=== PATIENT | male | born 1955 | race Caucasian/White ===

== ENCOUNTER 2018-11-02 06:29 | Emergency (ER) | payer BC, OTHER ==
--- OUTSIDE RECORDS SUMMARY | 2018-11-02 06:32 | XMS REPORT ---
:1955 [facility] Address [address] [place] [address] Care Team Providers Name Role Phone Unavailable Unavailable Unavailable Problems This patient has no known problems. Allergies, Adverse Reactions, Alerts This patient has no known allergies or adverse reactions. Medications This patient has no known medications. Results Test Description Test Time Test Comments Text Results Atomic Results Result Comments CT, HEART CORONARY CHRISTINA, WO 2018-10-15 09:49:00 Addendum BeginsREPORT STATUS :A CONTRAST Addendum: I agree with the previously described non vascular findings. Signed: Charles August Verified Date/Time: 10/15/2018 09:49:49 Reading Location: [place] [address] Angio Body Reading RoomAddendum EndsAddendum BeginsREPORT STATUS:A ADDENDUM: Reconstruction was made in the lower chest, with full athya-nx-ppaa. No nodule is identified and no pleural effusion is seen in the lower half of the lung syed. The noncontrast images of the upper abdomen is unremarkable. Degenerative changes is identified in the bony structures. Signed: Hector Shelton Verified Date/Time: 10/15/2018 07:55:39 Reading Location: [place] [address] Cardiology MRIAddendum EndsFINAL REPORT CT scan for Coronary Calcium scoring, 14 October 2018 INDICATION: This is a 63 -year old male with a diagnosis of I 47.1 presents for coronary calcium scoring. TECHNIQUE: Spiral acquisition without contrast administration using a Market6 multidetector CT scan. Calcium score is analysed using the Vital Therapiesa SOFTWARE. This exam was performed according to our departmental dose-optimisation programme, which includes automated exposure control, adjustment of the mA and/or kV according to patient size and/or use of iterative reconstruction technique. Dose modulation, iterative reconstruction, and/or weight based adjustment of the mA/kV was utilized to reduce the radiation dose to as low as reasonably achievable. Patient has excellent heart rate on arrival. FINDINGS: VASCULAR: The central pulmonary artery is at the upper limits of normal in size. The thoracic aorta is normal in course, calibre, contour. Minimal calcification is seen in the aortic root. No ectasia or aneurysmal dilation is identified. The arch vessel branching pattern is normal. The assessment of the pulmonary arteries and the thoracic aorta are limited as no intravenous contrast was administered. The cardiac chambers size are not enlarged, however, assessment is limited as no contrast was administered. The pericardium is normal appearance. There is no evidence of pericardial effusion. Calcium score and high-resolution, ECG synchronized computed tomography of the heart with attention to the coronary arteries was performed. Coronary calcification was analyzed using the Taboola system software. These are the results of the calcium score evaluation (nlkopmwft=126 HU): LM:=44 LAD:=238 LCX:=80 RCA:=428 Agatston:=790 Reference ranges for calcium scores are provided as follows (Farnsworth Clin Proc 1999; 74: 243-252): 0-10: minimal calcium 11-100: mild calcium 101-400 moderate calcium > 400 significant calcium The calcium score places patient between 90 to 95th percentile for his age group, using the HART database. The coronary arteries have normal origins. The left main coronary artery arises from the left sinus of Valsalva and give rise to the left anterior descending of the left circumflex arteries in the normal fashion. The right coronary artery arises from the right sinus of Valsalva. NON-VASCULAR: The visualised thyroid gland appears unremarkable with only tiny focal calcification seen in the right thyroid lobe, image nine, measure 7 mm in diameter. The chest wall and mediastinum appears unremarkable. No significant adenopathy is identified in the mediastinum. Calcified lymph nodes is seen in the left hilum indicating prior granulomatous disease. In the lung windows, no endobronchial lesion is seen, and no pleural effusion is identified, in the visualised lung syed. The lower chest is not reconstructed in the full agerk-ey-wnwi. Scattered calcified nodules are seen indicating prior granulomatous disease. No suspicious pulmonary nodule is identified, with visualised. Limited images of the upper abdomen reveals no gross abnormality. No acute bony pathology is identified, where visualised. Some degenerative changes is noted. CONCLUSIONS: 1. Quantitative coronary artery calcium Agatston score of 790. The calcium score places patient between 90 to 95th percentile for his age group, using the HART database. 2. Normal coronary artery origins. Calcification is identified in all three coronary territories including the left main coronary artery. 3. No acute pulmonary pathology. Evidence of prior granulomatous disease, where visualised. 4. Normal thoracic aortic calibre. Minimal calcification is seen in the aortic root. No ectasia or aneurysmal dilation is identified. 5. Other findings as described above. 6. An addendum will be dictated by the [employer] Apprentice Radiologist regarding the nonvascular findings. Signed: Hector Shelton MDReport Verified Date/Time: 10/14/2018 17:20:03 Reading Location: [place] [address] Cardiology MRI
--- OUTSIDE RECORDS SUMMARY | 2018-11-02 06:32 | XMS REPORT | Clinical Summary ---
:1955 Author Organization [facility] Address [address] [place] [address] Care Team Providers Name Role Phone Pcp, No Primary Care Provider Unavailable Allergies Not on File Medications Not on file Active Problems Not on file Encounters Date Type Specialty Care Team Description 10/14/2018 Hospital Encounter Radiology Kenyon Anders MD supraventricular tachycardia (HCC) 10/14/2018 Outside Orders Central Scheduling Kenyon Anders MD supraventricular tachycardia (HCC) (Primary Dx) after 11/01/2017 Social History Tobacco Use Types Packs/Day Years Used Date Never Assessed Sex Assigned at Date Recorded Not on file Job Start Date Occupation Industry Not on file Not on file Not on file Travel History Travel Start Travel End No recent travel history available. 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 Signed: Charles August MD Report Verified Date/Time:10/15/2018 09:49:49 Reading Location: [facility] [address] Angio Body Reading Room Addendum Ends Addendum Begins REPORT STATUS:A ADDENDUM: Reconstruction was made in the lower chest, with full nthyb-fz-wxxk. No nodule is identified and no pleural effusion is seen in the lower half of the lung syed. The noncontrast images of the upper abdomen is unremarkable. Degenerative changes is identified in the bony structures. Signed: Hector Shelton MD Report Verified Date/Time:10/15/2018 07:55:39 Reading Location: [place] [address] Cardiology MRI Addendum Ends FINAL REPORT CT scan for Coronary Calcium scoring, 14 October 2018 INDICATION: This is a 63 -year old male with a diagnosis of I 47.1 presents for coronary calcium scoring. TECHNIQUE: Spiral acquisition without contrast administration using a GE multidetectorCT scan. Calcium score is analysed using the Provasculona SOFTWARE. This exam was performed according to [...] identified. The arch vessel branching pattern is normal.The assessment of the pulmonary arteries and the [...] performed. Coronary calcification was analyzed using the Vitrea system software. These are the results of the calcium score evaluation (ejjvmzsrz=326 HU): LM:=44 LAD:=238 LCX:=80 RCA:=428 Agatston:=790 Reference ranges for calcium scores are provided as follows (Farnsworth Clin Proc 1999; 74: 243-252): 0-10: minimal calcium 11-100: mild calcium 101-400 moderate calcium > 400significant calcium The calcium score places patient between 90 to 95th percentile for his age group, using the HART database. The coronary arteries have normal origins.The left main coronary artery arises from the [...] chest is not reconstructed in the full dqzuv-oc-uvkq. Scattered calcified nodules are seen indicating prior granulomatous disease. No suspicious pulmonary nodule is identified, with visualised. Limited images of the upper abdomen reveals no gross abnormality. No acute bony pathology is identified, where visualised. Some degenerative changes is noted. CONCLUSIONS: 1.Quantitative coronary artery calcium Agatston score of790. The calcium score places patient between 90 to 95th percentile for his age group, using the HART database. 2.Normal coronary artery origins. Calcification is identified in all three coronary territories including the left main coronary artery. 3.No acute pulmonary pathology. Evidence of prior granulomatous disease, where visualised. 4.Normal thoracic aortic calibre. Minimal calcification is seen in the aortic root. No ectasia or aneurysmal dilation is identified. 5.Other findings as described above. 6.An addendum will be dictated by the Gluing Machine Offbearer Radiologist regarding the nonvascular findings. 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 Signed: Charles August MD Report Verified Date/Time: 10/15/2018 09:49:49 Reading Location: [facility] [address] Angio Body Reading Room Addendum Ends Addendum Begins REPORT STATUS:A ADDENDUM: Reconstruction was made in the lower chest, with full hbfes-um-yemp. No nodule is identified and no pleural effusion is seen in the lower half of the lung syed. The noncontrast images of the upper abdomen is unremarkable. Degenerative changes is identified in the bony structures. Signed: Hector Shelton MD Report Verified Date/Time: 10/15/2018 07:55:39 Reading Location: [place] [address] Cardiology MRI Addendum Ends FINAL REPORT CT scan for Coronary Calcium scoring, 14 October 2018 INDICATION: This is a 63 -year old male with a diagnosis of I 47.1 presents for coronary calcium scoring. TECHNIQUE: Spiral acquisition without contrast administration using a Lucky Sort multidetector CT scan. Calcium score is analysed using the Provasculona SOFTWARE. This exam was performed according to [...] performed. Coronary calcification was analyzed using the Provasculona system software. These are the results of the calcium score evaluation (gtqebswca=602 HU): LM:=44 LAD:=238 LCX:=80 RCA:=428 Agatston:=790 Reference [...] chest is not reconstructed in the full rwodg-br-qurk. Scattered calcified nodules are seen indicating prior [...] An addendum will be dictated by the Gluing Machine Offbearer Radiologist regarding the nonvascular findings. Signed: Hector Shelton MD Report Verified Date/Time: 10/14/2018 17:20:03 Reading Location: [facility] [address] Cardiology MRI Performing Organization Address City/State/Zipcode Phone Number GE RIS after 11/01/2017 Insurance Payer Benefit Plan / Subscriber ID Type Phone Address Group BLUE CROSS/BLUE BCBS PPO POS EPO xxxxxxxxxxxxxxx PPO [phone] [address] [facility] [place] [address] BLUE CROSS/BLUE BCBS OS xxxxxxxxxxxxxxx PPO [phone] [address] [employer] [place] [address] [address] [address]) [place] [id number]
[2018-11-02 07:09] LABS: Absolute Lymphocytes (CBC) 2.7 K/uL (0.7-4.9); Absolute Monocytes 0.6 K/uL (0.1-1.3); Absolute Neutrophil 3.4 K/uL (1.8-8.0); Basophils % 0.8 % (0-1.3); Eosinophils % 3.1 % (0-4.4); Hematocrit 46.9 % (39.6-49.0); Lymphocytes % 38.5 % (15.3-44.8); MPV 9.3 fL (7.6-11.3); Monocytes % 8.2 % (3.3-12.3); RBC Red Blood Cell Count 5.11 M/uL (4.33-5.43)
[2018-11-02] MEDS ORDERED: NA CHLORIDE 0.9% 1,000 ML ONE (07:16)
[2018-11-02] MEDS ORDERED: ASPIRIN 81 MG CHEWABLE TABLET ONE (07:16)
[2018-11-02] MEDS ORDERED: METOPROLOL TAR 25 MG TAB ONE (07:16)
[2018-11-02 07:28] LABS: Protime INR 0.98
[2018-11-02 07:42] LABS: Albumin 4.1 g/dL (3.4-5.0); Bilirubin Direct 0.1 mg/dL (0-0.2); Bilirubin Total 0.5 mg/dL (0.2-1.0); Magnesium 2.1 mg/dL (1.8-2.4); Potassium 4.5 mmol/L (3.5-5.1); Protein, Total 6.9 g/dL (6.4-8.2); Thyroid Stimulating Hormone 2.1 uIU/mL (0.360-3.740); Troponin (Emerg Dept Use Only) 0.2 ng/mL (0.0-0.045)
--- NOTE | 2018-11-02 08:12 | ER ---
Nurse's Notes [facility] Name: Alberto Corea Age: 63 yrs Sex: Male : 1955 Arrival Date: 11/02/2018 Time: 06:31 Bed 14 Private MD: Kianna Ghotra K Diagnosis: Unspecified atrial fibrillation Presentation: 11/02 06:46 Presenting complaint: Patient states: he started feeling like his heart was racing last bb night and again this morning his pulse rate is usually in the 40s recently he had a Holter monitor for 2 weeks but has not got the results yet. Pt denies chest pain or other symptoms. Transition of care: patient was not received from another setting of care. Onset of symptoms was November 01, 2018. Risk Assessment: Do you want to hurt yourself or someone else? Patient reports no desire to harm self or others. Initial Sepsis Screen: Does the patient meet any 2 criteria? No. Patient's initial sepsis screen is negative. Does the patient have a suspected source of infection? No. Patient's initial sepsis screen is negative. Care prior to arrival: None. 06:46 Method Of Arrival: Ambulatory bb 06:46 Acuity: MARIELY 2 bb Triage Assessment: 06:55 General: Appears in no apparent distress. Behavior is calm, cooperative, appropriate ea for age. Pain: Denies pain. EENT: No signs and/or symptoms were reported regarding the EENT system. Neuro: Level of Consciousness is awake, alert, obeys commands, Oriented to person, place, time, situation. Cardiovascular: Patient's skin is warm and dry. Parent/caregiver reports patient has had palpitations. Respiratory: Airway is patent Respiratory effort is even, unlabored, Respiratory pattern is regular, symmetrical. Derm: Skin is pink, warm \T\ dry. Historical: - Allergies: 06:54 No Known Allergies; bb - Home Meds: 06:54 lisinopril 20 mg Oral tab 1 tab twice a day [Active]; fenofibrate 54 mg oral tab 1 tab bb once daily [Active]; rosuvastatin 10 mg oral tab 1 tab [Active]; Cialis 5 mg oral tab 1 tab as needed [Active]; Singulair 10 mg Oral tab 1 tab as needed [Active]; Vit D3 2000 IU daily [Active]; Fish Oil oral oral [Active]; aspirin 81 mg Oral chew 1 tab once daily [Active]; vitamin [Active]; Probiotic oral oral daily [Active]; vit C 500 mg daily [Active]; - PMHx: 06:54 High Cholesterol; Hypertension; Hyperlipidemia; bb - PSHx: 06:54 Appendectomy; pito carpal tunnel; right rotator cuff; ulnar nerve release left elbow; bb ruptured left bicep; - Immunization history:: Adult Immunizations up to date, Flu vaccine is up to date. - Social history:: Smoking status: Patient/guardian denies using tobacco, Patient uses alcohol, occasionally. Patient/guardian denies using street drugs. - Ebola Screening: : No symptoms or risks identified at this time. Screenin:01 Abuse screen: Denies threats or abuse. Nutritional screening: No deficits noted. ea Tuberculosis screening: No symptoms or risk factors identified. Fall Risk IV access (20 points). Assessment: 07:00 General: Appears in no apparent distress. uncomfortable, Behavior is calm, cooperative, jl7 appropriate for age. Pain: Denies pain. Neuro: Level of Consciousness is awake, alert, obeys commands, Oriented to person, place, time, situation. Cardiovascular: Reports palpitations, Heart tones present Patient's skin is warm and dry. Rhythm is atrial fibrillation with rapid ventricular response. Respiratory: Airway is patent Respiratory effort is even, unlabored, Respiratory pattern is regular, symmetrical. GI: No signs and/or symptoms were reported involving the gastrointestinal system. : No signs and/or symptoms were reported regarding the genitourinary system. EENT: No signs and/or symptoms were reported regarding the EENT system. Derm: Skin is pink, warm \T\ dry. Musculoskeletal: No signs and/or symptoms reported regarding the musculoskeletal system. Vital Signs: 06:54 BP 117 / 89; Pulse 110; Resp 16 S; Temp 98.2(O); Pulse Ox 97% on R/A; Weight 97.52 kg bb (R); Height 5 ft. 9 in. (175.26 cm) (R); Pain 0/10; 07:39 BP 117 / 94; Pulse 116; Resp 16 S; Pulse Ox 98% on R/A; jl7 09:00 BP 116 / 90; Pulse 109; Resp 16 S; Pulse Ox 98% on R/A; jl7 06:54 Body Mass Index 31.75 (97.52 kg, 175.26 cm) bb ED Course: 06:31 Patient arrived in ED. am2 06:32 Kianna Ghotra MD is Private Physician. am2 06:48 Triage completed. bb 06:50 Pineda Estrella PA is PHCP. cp 06:50 Joshua Bain MD is Attending Physician. cp 06:50 Patient has correct armband on for positive identification. Placed in gown. Bed in low ea position. Call light in reach. Side rails up X 1. 06:50 Inserted saline lock: 20 gauge in right antecubital area, using aseptic technique. ea Blood collected. 06:54 Arm band placed on Patient placed in an exam room, on a stretcher, on school lunch monitor, bb on pulse oximetry. EKG completed in triage. Results shown to MD. 07:17 Abiola Cruz, GIANCARLO is Primary Nurse. jl7 07:24 XRAY Chest (1 view) In Process Unspecified. EDMS 07:38 Luis Antonio Joya MD is Attending Physician. cp 07:39 No provider procedures requiring assistance completed. jl7 08:10 Thelma Valencia MD is Hospitalizing Provider. cp 09:04 Melquiades Albert MD is Referral Physician. cp 09:32 IV discontinued, intact, bleeding controlled, No redness/swelling at site. Pressure jl7 dressing applied. Administered Medications: 07:18 Drug: Aspirin Chewable Tablet 324 mg Route: PO; jl7 08:00 Follow up: Response: No adverse reaction jl7 07:18 Drug: Metoprolol 25 mg Route: PO; jl7 08:00 Follow up: Response: No adverse reaction jl7 07:18 Drug: NS 0.9% 500 ml Route: IV; Rate: bolus; Site: right antecubital; jl7 07:50 Follow up: Response: No adverse reaction; IV Status: Completed infusion; IV Intake: jl7 500ml 07:18 Drug: NS 0.9% 1000 ml Route: IV; Rate: 125 ml/hr; Site: right antecubital; jl7 09:31 Follow up: IV Status: IV converted to saline lock jl7 08:17 Drug: Lovenox 1 mg/kg Route: Sub-Q; Site: right lower abdomen; jl7 09:00 Follow up: Response: No adverse reaction jl7 Intake: 07:50 IV: 500ml; Total: 500ml. jl7 Outcome: 08:11 Decision to Hospitalize by Provider. cp 09:04 Discharge ordered by . cp 09:32 Discharged to home ambulatory, with family. jl7 09:32 Condition: stable 09:32 Discharge instructions given to patient, family, Instructed on discharge instructions, follow up and referral plans. medication usage, Demonstrated understanding of instructions, follow-up care, medications, Prescriptions given X 2. 09:33 Patient left the ED. jl7 Signatures: Dispatcher [employer] EDMS Jocelyn Arthur RN RN bb Pineda Estrella, ROXANNA PA Abiola Soares RN RN jl7 Elsie Tolliver Elena RN RN elias Corrections: (The following items were deleted from the chart) 09:32 09:00 IV discontinued, intact, bleeding controlled, No redness/swelling at site. jl7 Pressure dressing applied, jl7
--- NOTE | 2018-11-02 08:12 | EDPHYS ---
Physician Documentation [facility] Name: Alebrto Corea Age: 63 yrs Sex: Male : 1955 Arrival Date: 11/02/2018 Time: 06:31 Bed 14 Private MD: Kianna Ghotra K ED Physician Luis Antonio Joya HPI: 11/02 06:59 This 63 yrs old Male presents to ER via Ambulatory with complaints of racing cp heart. 07:00 The patient presents with a history of heart racing. cp 07:00 Context: The symptoms occur at rest. Onset: The symptoms/episode began/occurred last cp night. Duration: The patient or guardian reports a single episode, that is still ongoing. Historical: - Allergies: 06:54 No Known Allergies; bb - Home Meds: 06:54 lisinopril 20 mg Oral tab 1 tab twice a day [Active]; fenofibrate 54 mg oral tab 1 tab bb once daily [Active]; rosuvastatin 10 mg oral tab 1 tab [Active]; Cialis 5 mg oral tab 1 tab as needed [Active]; Singulair 10 mg Oral tab 1 tab as needed [Active]; Vit D3 2000 IU daily [Active]; Fish Oil oral oral [Active]; aspirin 81 mg Oral chew 1 tab once daily [Active]; vitamin [Active]; Probiotic oral oral daily [Active]; vit C 500 mg daily [Active]; - PMHx: 06:54 High Cholesterol; Hypertension; Hyperlipidemia; bb - PSHx: 06:54 Appendectomy; pito carpal tunnel; right rotator cuff; ulnar nerve release left elbow; bb ruptured left bicep; - Immunization history:: Adult Immunizations up to date, Flu vaccine is up to date. - Social history:: Smoking status: Patient/guardian denies using tobacco, Patient uses alcohol, occasionally. Patient/guardian denies using street drugs. - Ebola Screening: : No symptoms or risks identified at this time. ROS: 07:05 Constitutional: Negative for body aches, chills, fever, poor PO intake. cp 07:05 Eyes: Negative for injury, pain, redness, and discharge. cp 07:05 ENT: Negative for drainage from ear(s), ear pain, sore throat, difficulty swallowing, difficulty handling secretions. 07:05 Cardiovascular: Positive for palpitations, Negative for chest pain, edema, orthopnea. 07:05 Respiratory: Negative for cough, shortness of breath, wheezing. 07:05 Abdomen/GI: Negative for abdominal pain, nausea, vomiting, and diarrhea, black/tarry stool, rectal bleeding. 07:05 Back: Negative for pain at rest, pain with movement. 07:05 Skin: Negative for cellulitis, rash. 07:05 Neuro: Negative for altered mental status, headache, syncope, weakness. 07:05 All other systems are negative. Exam: 06:59 ECG was reviewed by the Attending Physician. cp 07:10 Constitutional: The patient appears in no acute distress, alert, awake, comfortable, cp non-diaphoretic, non-toxic, well developed, well nourished. 07:10 Head/Face: Normocephalic, atraumatic. Eyes: Pupils equal round and reactive to light, cp extra-ocular motions intact. Lids and lashes normal. Conjunctiva and sclera are non-icteric and not injected. Cornea within normal limits. Periorbital areas with no swelling, redness, or edema. ENT: Nares patent. No nasal discharge, no septal abnormalities noted. Tympanic membranes are normal and external auditory canals are clear. Oropharynx with no redness, swelling, or masses, exudates, or evidence of obstruction, uvula midline. Mucous membranes moist. Chest/axilla: Normal chest wall appearance and motion. Nontender with no deformity. No lesions are appreciated. 07:10 Cardiovascular: Rate: tachycardic, Rhythm: irregular, Edema: is not appreciated, JVD: is not appreciated. 07:10 Respiratory: the patient does not display signs of respiratory distress, Respirations: normal, no use of accessory muscles, no retractions, no splinting, no tachypnea, labored breathing, is not present, Breath sounds: are clear throughout, no decreased breath sounds, no stridor, no wheezing. 07:10 Abdomen/GI: Inspection: abdomen appears normal, Palpation: abdomen is soft and non-tender, in all quadrants. 07:10 Skin: cellulitis, is not appreciated, no rash present. 07:10 Neuro: Orientation: to person, place \T\ time. Mentation: is normal, Cerebellar function: is grossly normal, Motor: moves all fours, strength is normal, Sensation: is normal, Gait: is steady, at a normal pace, without difficulty. Vital Signs: 06:54 BP 117 / 89; Pulse 110; Resp 16 S; Temp 98.2(O); Pulse Ox 97% on R/A; Weight 97.52 kg bb (R); Height 5 ft. 9 in. (175.26 cm) (R); Pain 0/10; 07:39 BP 117 / 94; Pulse 116; Resp 16 S; Pulse Ox 98% on R/A; jl7 09:00 BP 116 / 90; Pulse 109; Resp 16 S; Pulse Ox 98% on R/A; jl7 06:54 Body Mass Index 31.75 (97.52 kg, 175.26 cm) bb MDM: 06:50 Patient medically screened. 08:05 Physician consultation: Thelma Valencia MD was called at 08:05, was contacted at 08:05, regarding admission, to the telemetry unit. patient's condition, and will see patient in ED, shortly. 09:00 ED course: Patient seen and evaluated in ED by DR Valencia. Consult placed with DR vasquez Albert who feels patient may be discharged to home and f/u in clinic Sunday. Will start on Xeralto 20 mg daily and Metoprolol 12.5 mg bid. 09:01 Data reviewed: vital signs, nurses notes, lab test result(s), EKG, radiologic studies, cp plain films, and as a result, I will discharge patient. 09:01 Test interpretation: by ED physician or midlevel provider: ECG, plain radiologic cp studies. 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 11/02 06:51 Order name: Basic Metabolic Panel; Complete Time: 08:00 cp 11/02 08:00 Interpretation: Normal except: CL 109; BUN 27; GFR 62. cp 11/02 06:51 Order name: CBC with Diff; Complete Time: 08:00 cp 11/02 06:51 Order name: LFT's; Complete Time: 08:00 cp 11/02 06:51 Order name: Magnesium; Complete Time: 08:00 cp 11/02 06:51 Order name: NT PRO-BNP; Complete Time: 08:00 cp 11/02 08:00 Interpretation: Abnormal: NT PRO-BNP 267. cp 11/02 06:51 Order name: PT-INR; Complete Time: 08:00 cp 11/02 06:51 Order name: Troponin (emerg Dept Use Only); Complete Time: 08:00 cp 11/02 08:00 Interpretation: Abnormal: TROPED 0.20. cp 11/02 06:51 Order name: XRAY Chest (1 view) cp 11/02 06:51 Order name: TSH; Complete Time: 08:00 cp 11/02 06:51 Order name: T3 Free; Complete Time: 08:00 cp 11/02 06:51 Order name: EKG; Complete Time: 06:54 cp 11/02 06:51 Order name: Cardiac monitoring; Complete Time: 06:53 cp 11/02 06:51 Order name: EKG - Nurse/Tech; Complete Time: 06:54 cp 11/02 06:51 Order name: IV Saline Lock; Complete Time: 06:53 cp 11/02 06:51 Order name: Labs collected and sent; Complete Time: 07:03 cp 11/02 06:51 Order name: O2 Per Protocol; Complete Time: 06:54 cp 11/02 06:51 Order name: O2 Sat Monitoring; Complete Time: 06:54 cp EC:59 Rate is 116 beats/min. Rhythm is irregular. QRS interval is normal. QT interval is cp normal. Interpreted by me. Reviewed by me. Administered Medications: 07:18 Drug: Aspirin Chewable Tablet 324 mg Route: PO; 7 08:00 Follow up: Response: No adverse reaction 07:18 Drug: Metoprolol 25 mg Route: PO; jl7 08:00 Follow up: Response: No adverse reaction 7 07:18 Drug: NS 0.9% 500 ml Route: IV; Rate: bolus; Site: right antecubital; jl7 07:50 Follow up: Response: No adverse reaction; IV Status: Completed infusion; IV Intake: jl7 500ml 07:18 Drug: NS 0.9% 1000 ml Route: IV; Rate: 125 ml/hr; Site: right antecubital; 7 09:31 Follow up: IV Status: IV converted to saline lock jl7 08:17 Drug: Lovenox 1 mg/kg Route: Sub-Q; Site: right lower abdomen; jl7 09:00 Follow up: Response: No adverse reaction jl7 Disposition: 12:18 Co-signature as Attending Physician, Luis Antonio Joya MD. Disposition: 11/02/18 09:04 Discharged to Home. Impression: Unspecified atrial fibrillation. - Condition is Stable. - Discharge Instructions: Atrial Fibrillation, Aspirin and Your Heart. - Prescriptions for Xarelto 20 mg Oral tablet - take 1 tablet by ORAL route once daily; 45 tablet. Metoprolol Tartrate 25 mg Oral Tablet - take 0.5 tablet by ORAL route 2 times per day with a meal; 45 tablet. - Medication Reconciliation Form, Thank You Letter, Antibiotic Education, Prescription Opioid Use form. - Follow up: Melquiades Albert MD; When: 11/04/2018; Reason: Recheck today's complaints. - Problem is new. - Symptoms have improved. Signatures: Dispatcher [employer] EDMS Jocelyn Arthur RN RN Pineda Hyde PA PA cp Abiola Cruz RN RN jl7 Melissa Pineda RN Luis Antonio Elena ea, MD MD Corrections: (The following items were deleted from the chart) 09:03 08:11 Hospitalization Ordered by Thelma Valencia MD for Observation. Preliminary cp diagnosis is Unspecified atrial fibrillation. Bed requested for Telemetry/MedSurg (observation). Status is Observation. Condition is Stable. Problem is new. Symptoms have improved. UTI on Admission? No. cp 09:33 09:04 11/02/2018 09:04 Discharged to Home. Impression: Unspecified atrial fibrillation. jl7 Condition is Stable. Forms are Medication Reconciliation Form, Thank You Letter, Antibiotic Education, Prescription Opioid Use. Follow up: Melquiades Albert; When: 11/04/2018; Reason: Recheck today's complaints. Problem is new. Symptoms have improved. cp
[2018-11-02] MEDS ORDERED: ENOXAPARIN 100 MG/ML SYR SQ ONE (08:24)
[2018-11-02 09:37] VITALS: TEMP 98.2
[2018-11-02 09:38] VITALS: O2SAT 98
[2018-11-02 09:40] VITALS: BP 116/90
--- NOTE | 2018-11-02 11:37 | RAD REPORT ---
EXAM DESCRIPTION: RAD - Chest Single View - 11/02/2018 7:21 am CLINICAL HISTORY: PALPITATIONS Chest pain. COMPARISON: No comparisons FINDINGS: Portable technique limits examination quality. The lungs are grossly clear. The heart is normal in size. No displaced fractures. IMPRESSION: No acute intrathoracic process suspected.
--- NOTE | 2018-11-02 22:34 | CON ---
Chief Complaint: Palpitations. History Of Present Illness: The patient is 63-year-old man with past medical history of hypertension , hyperlipidemia, presented to the emergency room with palpitation. The patient mentioned that early in the morning he saw that he had palpitation and when he measured his blood pressure, he found that his pulse rate was in the 80s. According to the patient that his normal pulse rate is always in the 40s. The patient denied any chest pain or problems with breathing or exertional dyspnea. The patie nt also denied nausea, vomiting, or sweating. Denied any change in urinary or bowel habits. The valarie castaneda was seen by Dr. Guzmán, Cardiology who recommended to see Dr. Walker in the medical center and mirta sequeira had echo and stress test and Holter monitor done at that time, and according to the patient, a ll the tests were normal, and the only test that is pending is the Holter monitor report. The patien t mentioned that he was told that he could have SVT versus AFib. The patient was never started on bl ood thinner because AFib was never confirmed. In the emergency room, when he presented today, his pu lse rate was 100 to 120, and at the time of my examination, patient was given metoprolol. At the josephine e of my examination, his pulse rate was ranging from 80 to 90 in AFib. Past Medical History: Hypertension, hyperlipidemia. Allergies: NO KNOWN DRUG ALLERGIES. Social History: He denied smoking, drinking, or illicit drug use, and he mentioned that he exercise regularly. Family History: Noncontributory. Review of Systems: A 10-point review of system is done and is otherwise unremarkable. Physical Examination: Vital Signs: Temperature was 97.1, and blood pressure was 110/70, and pulse rate was 90. General: The patient is awake, alert, oriented x3, not in acute distress, sitting comfortable in the bed. HEENT: Atraumatic, normocephalic. PERRLA. Neck: Supple. Respiratory: Clear to auscultation bilaterally. Normal air movement. No wheezing or crackles. Cardiovascular: Regular rate and rhythm. Normal S1, S2. Normal pulses. No edema, no cyanosis. Gastrointestinal: Normal bowel sounds. Abdomen is soft and nontender. Bowel sound positive and non distended. Musculoskeletal: No clubbing, cyanosis, or edema. Assessment And Plan: 1.Atrial fibrillation with rapid ventricular response. 2.At the time of my examination, patient's pulse rate was ranging from 80 to 90. 3.[address] Dr. Albert, mailing machine operator, who recommended to discharge the patient home with edmundo shah in the clinic on Sunday morning. The patient was given prescription of metoprolol 12.5 mg. 4.Continue other home meds. 5.The patient was advised if he experienced any shortness of breath or chest pain to come to emergen cy room. 6.Plan discussed with the patient and the at the bedside and the ER physician. GABBY Voice ID: [id number] Report ID: [id number]
--- NOTE | 2018-11-04 07:41 | EKG ---
Test Date: 2018-11-02 Test Time: 06:43:43 Esol Instructor: RENETTA MEASUREMENT RESULTS: Intervals: Rate: 116 NE: QRSD: 94 QT: 340 QTc: 472 [place]: P: NE: QRS: -11 T: -7 INTERPRETIVE STATEMENTS: Atrial fibrillation with rapid ventricular response Incomplete right bundle branch block Nonspecific ST abnormality, probably digitalis effect Abnormal ECG No previous ECG available for comparison Electronically Signed On 11-04-18 07:38:03 PICKLING OPERATOR by Melquiades Albert
== END 2018-11-02 09:33 | disposition home or self-care (01) ==
LOC: ER 06:29 → UNDOADMOB 08:33 → ERHOLD 08:33 → ER 09:33
DX: I48.91 Unspecified atrial fibrillation (principal); I10 Essential (primary) hypertension; E78.5 Hyperlipidemia, unspecified; E78.00 Pure hypercholesterolemia, unspecified; Z79.82 Long term (current) use of aspirin
CPT/HCPCS: 36415; 71045; 80048; 80076; 83735; 83880; 84443; 84481; 84484; 85025; 85610; 93005; 96360; 96361; 96372; 99284; J1650; J7030

== ENCOUNTER 2022-09-13 13:51 | Emergency (ER) | payer OTHER, BC ==
--- OUTSIDE RECORDS SUMMARY | 2022-09-13 14:00 | XMS REPORT | Continuity of Care Document ---
:[address] [facility] t Address [address] [place] [address] Care Team Providers Name Role Phone JAMAICA WALSH Shakir Primary Care Physician Unavailable Dawson FERREIRA, Arnaud Attending Clinician Susanna MIRAMONTES-COURT BAILIFFToya Attending Clinician Kate FERREIRA, Ivone Brannon Attending Clinician VIKRAM ODEN Attending Clinician Unavailable IRMA MARTIN Attending Clinician Unavailable JOSE CREWS Attending Clinician Unavailable NICHOLAS MCMANUS Attending Clinician Unavailable VIKRAM ODEN Admitting Clinician Unavailable IRMA MARTIN Admitting Clinician Unavailable Payers Payer Name Policy Type Policy Number Effective Date Expiration Date S [facility] [place]ICARE PART A [id number] 2021 AND B 00:00:00 BCBS OS [id number] 2017 POS/PPO/EPO 00:00:00 Problems Condition Condition Condition Status Onset Resolution Last Treating Co mments Source Name Details Category Date Date Treatment Clinician Date Trigger Trigger Disease Active 2021-09 [facility] middle middle 0-31 Health finger of finger of 00:00: left hand left hand 00 Osteoarthr Osteoarthr Disease Active 2021-09 U T osis, osis, 0 Health localized, localized, 00:00: primary, primary, 00 hand, hand, right right Abnormal Abnormal Disease [facility] Allergies, Adverse Reactions, Alerts Allergy Allergy Status Severity Reaction(s) Onset Inactive Treating Comm ents Source Name Type Date Date Clinician Latex Propensi Active Itching [facility] ty to 07 Health adverse 00:00: reaction 00 s NO KNOWN Allergy Active [facility] Social History Social Habit Start Date Stop Date Quantity Comments Source History SDOH [facility] Alcohol Binge [facility] [place] [facility] History SDOH [facility] Alcohol Frequency [facility] History SDOH [facility] Alcohol Std Drinks [facility] History of tobacco Passive smoker [facility] use Exposure to 2022-07-07 2022-07-17 Not sure [facility] SARS-CoV-2 (event) 00:00:00 11:35:00 Alcohol intake 2022-02-22 2022-02-22 Current drinker [facility] 00:00:00 00:00:00 of alcohol Hospital (finding) History SDOH 2018-11-25 2018-11-[address] [facility] Alcohol Comment 00:00:00 00:00:00 daily Medical C enter Tobacco use and 2018-11-22 2018-11-[address] [facility] exposure 00:00:00 00[facility]00:00 Medical Center Sex [birth year] At [birth year] [facility] 00:00:00 00:00:00 Hospital Smoking Status Start Date Stop Date Source Never smoked tobacco [facility] Ex-smoker 2022-02-22 00:00:00 2022-02-22 00:00:00 [facility] Medications Ordered Filled Start Stop Current Ordering Indication Dosage Frequency Signature Comments Components Source Medication Medication Date Date Medication? Clinician (SIG) Name Name lidocaine 2021-09- No [id number] 1mL [facility] (Xylocaine) 07-17 Health 1 % 16:45: 16:45 injection 1 00 :00 mL methylPREDN 2021-09- No [id number] 20mg UT ISolone 0-31 10-31 Health acetate 16:45: 16:45 (DEPO-Medro 00 :00 l) injection 20 mg methylPREDN 2021-09- No [id number] 20mg 20 mg, UT ISolone 007-17 Intra-rory Healt h acetate 16:45: 16:45 cular, (DEPO-Medro 00 :00 Once PRN l) Procedure, injection Starting 20 mg on Sun07/17/22 at 1145, For 1 dose lidocaine 2021-09- No [id number] 1mL 1 mL, U T (Xylocaine) 07-17 Injection, H ealth 1 % 16:45: 16:45 Once PRN injection 1 00 :00 Procedure, mL Starting on Sun07/17/22 at 1145, For 1 dose Ascorbic 2021-09 Yes Take by UT Acid 0-31 mouth. Health (Vitamin C 11:48: ER) 500 MG 51 tablet controlled- release fenofibrate 2021-09 Yes 54mg QD Take 54 mg UT (Tricor) 54 0-31 by mouth 1 He alth MG tablet 11:48: (one) time 51 each day. lisinopril 2021-09 Yes 40mg Take 40 mg U T 40 MG 0-31 by mouth. Health tablet 11:48: 51 Multiple 2021-09 Yes 15mL QD Take 15 mL UT Vitamins-Mi 0-31 by mouth 1 He alth nerals 11:48: (one) time (Multivitam 51 each day. in & Mineral) liquid [place]-3 2021-09 Yes Take by UT Fatty Acids 0-31 mouth. Health (RA Fish 11:48: Oil) 1000 51 MG capsule tadalafil 2021-09 Yes 10mg Take 10 mg UT (Cialis) 10 0-31 by mouth. Hea lth MG tablet 11:48: 51 dexlansopra 2021-09 Yes TAKE 1 UT zole 0-24 CAPSULE BY Health (Dexilant) 00:00: MOUTH [address] 00 DAILY 30 capsule BEFORE EATING BREAKFAST amLODIPine 2021-09 Yes UT (Norvasc) 5 0-02 Health MG tablet 00:00: 00 rosuvastati 2021-09 Yes UT n (Crestor) 0-02 Health 10 MG 00:00: tablet 00 metoprolol Yes 25mg QD Take 25 mg U T succinate 8-16 by mouth 1 Heal th XL 00:00: (one) time (Toprol-XL) 00 each day. 25 MG 24 hr tablet omeprazole 2021-0 Yes UT (PriLOSEC) 8-[address] 00:00: capsule 00 cholecalcif 2021-0 Yes QD Take by Met hodi lynsey, 6-[address] vitamin D3, 14:21: daily. Hosp bob 50 mcg 16 l (2,000 unit) capsule capsule fenofibrate 2021-0 Yes 54mg QD Take 54 mg [facility] (LOFIBRA) 6-[address] 54 MG 14:21: daily. Hospita tablet 16 l rosuvastati 2021-0 Yes 10mg Q1W Take 10 mg [facility] n (CRESTOR) 6-[address] 10 mg 14:21: every 7 Hospita tablet 16 days. l tadalafiL 2021-0 Yes 10mg Q24H Take 10 mg Me thodi (CIALIS) 10 6-[address] MG tablet 14:21: daily as Hosp bob 16 needed. l multivitami 2021-0 Yes 1{tbl} QD Take 1 Me thodi n 6-[address] (THERAGRAN) 14:21: mouth Hospi ta tablet 16 daily. l triamcinolo 2021-0 Yes 2{spray QD 2 sprays [facility] ne 6-08 } into each st (Nasacort) 14:21: nostril Hosp bob 55 mcg 16 daily. l nasal inhaler metoprolol 2021-0 Yes 25mg QD Take 25 mg M ethodi succinate 5-[address] XL 00:00: daily. Hospita (TOPROL-XL) 00 l 25 mg 24 hr tablet azelastine 2021-0 Yes [facility] (ASTELIN) 5-15 st 137 mcg 00:00: Hospita (0.1 %) 00 l nasal spray omeprazole 2021-0 Yes [facility] (PriLOSEC) 5-14 st 40 MG 00:00: Hospita capsule 00 l famotidine 2021-0 Yes [facility] (PEPCID) 20 5-14 st MG tablet 00:00: Hospita 00 l amLODIPine 2-0 Yes [facility] (NORVASC) 5 4-05 st mg tablet 00:00: Hospita 00 l Sutab 2022-0 Yes See [place] administra He alth 8 MG tablet 00:00: tion 00 john benavidez. PLEASE SEE ATTACHED FOR DETAILED DIRECTIONS rosuvastati 2020-0 Yes 10mg Q7D Take [address] [facility] (CRESTOR) -08 by mouth Luke s 10 MG 11:22: once a Medical tablet 33 week Center Sunday. cholecalcif 2020-0 Yes 2000U QD Take 2,[address] [facility], 9- Units by [employer] vitamin D3, 11:22: mouth Medic al 2,000 unit 33 daily. [place] Tab omega-3 2020-0 Yes 1{capsu QD Take 1 [facility] t fatty 05-25 le} capsule by [employer] acids-fish 11:22: mouth Medica l oil (FISH 33 daily. [place] OIL) 360-1,200 mg Cap ascorbic 2020-0 Yes 500mg QD Take [address] acid, 9-08 mg by [employer] vitamin C, 11:22: mouth Medica l (ASCORBIC 33 daily. [place] ACID WITH DAYA HIPS) 500 MG tablet multivitami 2020-0 Yes 1{tbl} QD Take [address] n 05-25 tablet by [employer] (MULTIVITAM 11:22: mouth Medic al IN) per 33 daily. [place] tablet Lactobac 2020-0 Yes QD Take by [facility] no.41/Bifid 05-25 mouth [facility]ukes obact no.7 11:22: daily. Medic al (PROBIOTIC- 33 Center 10 ORAL) efinaconazo 2020-0 Yes QD Apply [facility] t le (JUBLIA) 05-25 topically Billy es 10 % Gopal 11:22: daily. Medica l 33 [place] levocetiriz 2020-0 Yes 5mg QD Take [address] ine (XYZAL) 05-25 by mouth Luke s 5 MG tablet 11:22: every Medic al 33 evening. [place] lisinopril 2020-0 Yes 20mg Q.5D Take [address] (PRINIVIL,Z -08 by mouth 2 Eli kes ESTRIL) 20 11:22: (two) Medica l MG tablet 33 times Center daily. fenofibrate 2020-0 Yes 54mg QD Take [address] (LOFIBRA) -08 by mouth [facility]ukes 54 MG 11:22: daily. Medical tablet 33 Center tadalafiL Yes 10mg Take [address] (CIALIS) 10 9-08 by mouth Luke s MG tablet 11:09: daily as Medi christina 19 needed. [place] montelukast Yes 10mg Take [address] (SINGULAIR) 3-11 by mouth Luke s 10 mg 13:14: as needed. Medica l tablet 55 [place] rivaroxaban Yes Take by [facility] (XARELTO) 3-11 mouth [facility]ukes 20 mg Tab 13:14: daily with Me dical tablet 55 dinner. [place] metoprolol Yes 12.5mg Q.5D Take 12.[address] (LOPRESSOR) 3-11 mg by [facility]ukes 25 MG 13:14: mouth 2 Medical tablet 55 (two) Center times daily As needed . meloxicam Yes 7.5mg QD Take 7.[address] (MOBIC) 7.5 3-11 mg by [facility]ukes MG tablet 13:14: mouth Medical 55 daily. Center Immunizations Ordered Immunization Filled Immunization Date Status Commen ts Source Name Name E-Semble READY TO USE 2022-02-15 Completed [facility] COVID-19 MRNA 00:00:00 Hospital VACCINATION PFIZER COVID-19 MRNA 2021-06-16 Completed [facility] VACCINATION 00:00:00 Hospital PFIZER COVID-19 MRNA 2020-12-04 Completed [facility] VACCINATION 00:00:00 Hospital PFIZER COVID-19 MRNA 2020-11-13 Completed [facility] VACCINATION 00:00:00 Hospital Vital Signs Vital Name Observation Time Observation Value Comments Source WEIGHT 2020-05-25 00:00:00 94.802 kg HEIGHT 2020-05-25 00:00:00 175.3 cm WEIGHT 2020-05-25 00:00:00 94.802 kg HEIGHT 2020-05-25 00:00:00 175.3 cm Systolic blood 2022-02-22 19:15:00 155 mm[Hg] [facility] pressure Diastolic blood 2022-02-22 19:15:00 88 mm[Hg] [facility] pressure Heart rate 2022-02-22 19:15:00 60 /min [facility] Body height 2022-02-22 19:15:00 175.3 cm [facility] weight 2022-02-22 19:15:[address] [facility] BMI 2022-02-22 19:15:00 31.75 kg/m2 [facility] Procedures Procedure Date / Time Performed Performing Clinician Sourewelina e [place] INJECT TENDON SHEATH/LIGAMENT 2022-07-17 16:45:00 Arnaud Osman [facility] Plan of Care Planned Activity Planned Date Details Comments Source Future Scheduled 2022-09-03 Hepatitis C screening [facility] Test 09:09:17 (procedure) [code = 584352556] Future Scheduled 2022-09-03 COLONOSCOPY SCREENING [facility] Test 09:09:17 [code = COLONOSCOPY SCREENING] Future Scheduled 2022-09-03 SHINGLES VACCINES (1 Met [facility] Test 09:09:17 of 2) [code = SHINGLES VACCINES (1 of 2)] Future Scheduled 2022-09-03 65+ [facility]CCAL [facility] Test 09:09:17 VACCINE (1 - PCV) [code = 65+ PNEUMOCOCCAL VACCINE (1 - PCV)] Future Scheduled 2022-09-03 COVID-19 VACCINE (5 - [facility] Test 09:09:17 Booster for Pfizer series) [code = COVID-19 VACCINE (5 - Booster for Pfizer series)] Future Scheduled 2022-09-03 INFLUENZA VACCINE [facility] Test 09:09:17 [code = INFLUENZA VACCINE] Future Scheduled 2022-05-18 INFLUENZA VACCINE (#1[facility] 00:00[facility]00 [code = INFLUENZA Medical Ce nter VACCINE (#1)] Future Scheduled 2021-09-[address] [facility] Test 00:00:00 (12+) [code = Medical Center DEPRESSION SCREENING (12+)] Future Scheduled 2021-09-17 FALLS RISK SCREENING [facility] Test 00:00:00 [code = FALLS RISK Medical C enter SCREENING] Future Scheduled 2021-05-[address] [facility] Test 00:00:00 Counseling and Medical Cente r Screening (12+) [code = Tobacco Cessation Counseling and Screening (12+)] Future Scheduled 2021 PNEUMOCOCCAL 65+ Y[facility] Test 00:00:00 (1 - PCV) [code = Medical Ce nter PNEUMOCOCCAL 65+ YRS (1 - PCV)] Future Scheduled 2006 SHINGLES VACCINES ([address] [facility] Test 00:00:00 of 2) [code = SHINGLES Medic al Center VACCINES (1 of 2)] Future Scheduled 1975 DTAP/TDAP/TD VACCINES [facility] Test 00:00:00 (1 - Tdap) [code = Medical C enter DTAP/TDAP/TD VACCINES (1 - Tdap)] Future Scheduled 1974 HEPATITIS C SCREENING [facility] Test 00:00:00 [code = HEPATITIS C Medical Center SCREENING] Future Scheduled 1955 COVID-19 VACCINE (#1) [facility] Test 00:00:00 [code = COVID-[address] VACCINE (#1)] Future Scheduled [address] [facility] Test 00:00:00 (combo) [code = CT Medical C enter Colonography (combo)] Future Scheduled [address] [facility] Test 00:00:00 malignant neoplasm of Medica l Center colon (procedure) [code = 108255960] Future Scheduled [address] [facility] Test 00:00:00 malignant neoplasm of Medica l Center colon (procedure) [code = 406567411] Future Scheduled [address] [facility] Test 00:00:00 malignant neoplasm of Medica l Center colon (procedure) [code = 818663935] Future Scheduled [address] [facility] Test 00:00:00 malignant neoplasm of Medica l Center colon (procedure) [code = 471577258] Future Scheduled 1955 Sigmoidoscopy [code = [facility] Test 00:00:00 Sigmoidoscopy] Medical Cente r Encounters Start End Encounter Admission Attending Care Care Encounter Source Date/Time Date/Time Type Type Clinicians Facility Department ID 2022-07-26 Outpatient [facility] [id number] [place] 10:23:14 [id number] [facility] 2022-07-17 Outpatient [facility] [id number] [place] 11:31:38 [id number] [facility] 2022-06-29 Outpatient [facility] [id number] [place] 10:52:53 [id number] [facility] 2022-07-17 2022-07-17 Outpatient [facility] [id number] [place] 11:55:00 12:53:21 Health 2022-07-17 2022-07-17 Office Arnaud Osman [facility] [id number] [place] 11:45:00 12:53:21 Visit ORTHO AND 350.1.13.58 Health SP[facility] 9.2.7.2.686 MEDICAL [id number] PLAZA 2 2022-03-14 2022-03-14 Telemedici Michelleter, 1.2.840.1 [id number] [facility] 14:00:00 14:38:18 [place] Toya [address].1.[address] 3.430.2.7 Hospit a .3.082481 l .8 2022-03-14 2022-03-14 Outpatient [facility] [id number] [place] 00:00:00 00:00:[address] 2022-02-28 2022-02-28 Telemedici Michelleter, 1.2.840.1 [id number] [facility] 11:00:00 12:03:44 [address].1.[address] 3.430.2.7 Hospit a .3.409352 l .8 2022-02-28 2022-02-28 Outpatient [facility] [id number] [place] 00:00:00 00:00:[address] 2022-02-22 2022-02-22 Office Kate 1.2.840.1 [id number] [facility] 14:20:00 14:56:48 Visit Ivone [address]8600.1.[address] [place] 3.430.2.7 Hospit a .3.737239 l .8 2022-02-22 2022-02-22 Travel 1.2.840.1 [id number] [id number] [facility] 00:00:00 00:00:[address] 3.430.2.7 0.2.7.3.698 Ho spita .3.707963 084.8 l .8 2022-02-22 2022-02-22 Outpatient BRENDAMAUREEN, [facility] [id number] [place] 00:00:00 00:00:[address] 2022-01-16 2022-01-16 Outpatient CEC[place]LE, [facility] CAR [id number] [facility] 12:43:00 18:49:00 VIKRAM Valencia [facility] 2020-05-25 2020-05-25 Outpatient [facility] [id number] [facility] 00:00:00 00:00:00 NICOL IRMA 2020-05-14 2020-05-14 Outpatient [facility] [id number] [facility] 00:00:00 00:00:00 NICOL IRMA 2020-02-18 2020-02-18 Outpatient CREWS, [facility] [id number] [place] 00:00:00 00:00:00 JOSE [address] 2020-02-18 2020-02-18 Outpatient CREWS, [facility] [id number] [place] 00:00:00 00:00:[address] JOSE [address] Results Test Description Test Time Test Comments Results Result Sour e Comments CT, CTA CORONARY, 2020-05-26 Addendum BeginsREPORT W/ CHRISTINA EVAL 15:10:00 STATUS:A I agree with the nonvascular findings detailed by Dr. Shelton. Additional nonvascular finding includes: Subcentimeter calcified granulomas in the central left upper lobe. Signed: Parisa Albright MDRepnino Verified Date/Time: 05/26/2020 15:10:16 Reading Location: [address] Radiology Reading RoomAddendum EndsFINAL REPORT CT coronary angiography, 25-May-20 INDICATION: This is a pleasant 65 years old gentleman, with abnormal stress test. According to patient, he has coronary angiography 1-2 years ago demonstrating no obstructive coronary artery disease. Patient is doing well, active, and ride his bicycle at least a few miles a day, as well as exercise with treadmill. Stress test was abnormal. TECHNIQUE: Spiral acquisition before and during intravenous contrast administration using a Luis Manuel multidetector CT scan. Multi-planar 3-D volume-rendering reconstruction was performed using an independent workstation interactively by the interpreting physician as well as the 3-D specialist for optimal visualisation of the coronary anatomy. Consecutive thin slices (< 1mm) were obtained. Patient has excellent heart rate on arrival, increased bradycardia, heart rate is 40 bpm. Medication administration: Oral metoprolol 0 mg;IV metoprolol 0 mg;S/L nitroglyercin 0.4 mg. Please refer to the contrast sheet scanned in the EPIC system for the amount and route of contrast given. This exam was performed according to our departmental dose-optimisation programme, which includes automated exposure control, adjustment of the mA and/or kV according to patient size and/or use of iterative reconstruction technique. Dose modulation, iterative reconstruction, and/or weight based adjustment of the mA/kV was utilized to reduce the radiation dose to as low as reasonably achievable. FINDINGS: VASCULAR: The thoracic aorta is normal in course, caliber, contour. There is no acute aortic pathology, specifically, there is no dissection, contained rupture, and intramural hematoma. The arch vessel branching pattern is normal. The central pulmonary artery is normal in calibre. The cardiac chambers size are normal. There is normal atrio-ventricular and ventriculo-arterial concordance, and systemic and pulmonary venous return. The mitral, aortic, and pulmonic valve has normal appearance. The tricuspid valve was not well visualized this examination. The pericardium is normal appearance. There is no evidence of pericardial effusion. Calcium score and high-resolution, ECG synchronized computed tomography of the heart with attention to the coronary arteries was performed. Coronary calcification was analyzed using the EPSa system software. These are the results of the calcium score evaluation (threshold = 130 HU): LM: = 35 LAD: = 248 LCX: = 92 RCA: = 517 Agatston: = 892 Reference ranges for calcium scores are provided as follows ([place] Clin Proc 1999; 74: 243-252): 0-10: minimal calcium 11-100: mild calcium 101-400 moderate calcium > 400 significant calcium The calcium score places patient greater than 95th percentile for his age group, using the HART database. The coronary arteries have normal origins. The left main coronary artery arises from the left sinus of Valsalva and give rise to the left anterior descending of the left circumflex arteries in the normal fashion. The right coronary artery arises from the right sinus of Valsalva. The left main coronary artery is widely patent. The proximal LAD has mild eccentric nonobstructive calcification identified, with only luminal irregularities present. At the origin of the mid LAD, with the takeoff of the first diagonal artery, substantial noncalcific atherosclerosis is identified, and in addition focal central calcification is seen making accurate assessment limited, potentially could represent a significant lesion. See snapshot for details. Remainder of the mid LAD only have eccentric nonobstructive calcification identified. The distal LAD is unremarkable. The first diagonal artery is a 1.5 mm vessel and is widely patent. The second diagonal artery measures 3 mm and is widely patent proximally. The left circumflex artery is a nondominant vessel. The proximal LCx has eccentric nonobstructive calcification identified. At the mid LCx, there is a discrete segment with persistent low in signal intensity, with noncalcific atherosclerosis identified, representing a lesion. The patent lumen is 1.3 sq mm with a reference diameter of 3.1 mm, suggesting a 50-60 % reduction in diameter. Remainder of the mid LCx is unremarkable. The OM branch is widely patent proximally. The proximal and mid RCA has eccentric nonobstructive calcification identified. The distal RCA also have nonobstructive calcification identified. The PL branch is widely patent. The proximal PDA also have eccentric nonobstructive calcification identified, proximally. NON-VASCULAR: A tiny cyst is identified in the right thyroid gland at image 5, measures total of 7 mm with focal calcification identified. Since this is less than 1.5 cm, this is only considered an incidental finding. An addendum dictated thereafter, if needed. The chest wall mediastinum appears unremarkable. No significant adenopathy is identified in the mediastinum. In the lung windows, no endobronchial lesion is seen, and no pleural effusion is identified. Dependent changes are seen in the lung bases. A tiny juxtapleural nodule is identified at image one of the lower chest series in the right lung. Probably a 2 mm nodule identified in the upper chest series, in the right lung at image 18. Due to the small size, they are of doubtful clinical significance in the absence of significant past medical history. Limited images of the upper abdomen reveals no gross abnormality. No acute bony pathology is seen. Some degenerative changes is noted. CONCLUSIONS: 1. Quantitative coronary artery calcium volume and Agatston score of 892. The calcium score places patient greater than 95th percentile for his age group, using the HART database. (i). The left main coronary artery is widely patent. (ii). The proximal LAD only have eccentric calcification identified with no obstructive lesion seen, only luminal irregularities are seen. At the takeoff of the mid LAD, substantial noncalcific atherosclerosis is seen with focal calcification identified, and may potentially suggesting a significant lesion. Remainder of the mid LAD is unremarkable with good enhancement identified except for eccentric calcification. The distal LAD is also widely patent. (iii). The LCx is nondominant with eccentric mild calcification seen proximally. At the juncture of the proximal and mid LCx, an approximately 50-60% reduction in diameter is identified with noncalcific atherosclerosis. Note, the sinoatrial branch arising from the LCx, however, it is arising from the proximal LCx (with no obstructive lesion identified in the proximal LCx). (iv). Scattered nonobstructive mild calcification seen in the dominant RCA. Clinical significance of the mid LAD lesion and the mid LCx lesions uncertain, especially on direct questioning, it appears patient has very good exercise tolerance with no chest pain. 3. No acute pulmonary pathology. Tiny pulmonary nodules of doubtful significance in the absence of significant past medical history. In any case, professional society recommendation as follows: Nodule Size <6 mm Low-Risk Patient: No routine follow-up Nodule Size <6 mm High-Risk Patient: Optional CT at 12 months 4. Normal thoracic aorta. No ectasia or aneurysmal dilation is seen. 5. Other findings as described above. 6. The non-vascular findings will be reviewed by the Siderographer Radiologist and addendum will be added as needed. The imaging findings were discussed in detail with the Siderographer Clipman. Signed: Hector Shelton MDReport Verified Date/Time: 05/25/2020 16:41:06 Reading Location: [place] [address] [address] Reading Room -CREATININE 2020-05-25 11:53:00 Test Item Value Reference Range Interpretation Comme nts POC-CREATININE (BEAKER) 1.1 mg/dL 0.6-1.3 : TE STED AT [address] (test code = 1859) SHALOM Mart, [id number]: Assistant Professor Of History/Techni janna ID = [id number] for Janna Thompson POC-EGFR (REHANA) (test 67 mL/min/1.73M2 code = 1860) ALEXANDER VAZQUEZ, [id number] 19:31:00Reason for Exam:->I47.1FINAL REPORT Cardiac MRI dated 27 February 2019 INDICATION: This is a 63 years old male, with a combination of ventricular arrhythmia, bradycardia, and paroxysmal atrial fibrillationpresents for assessment., Catheterization suggest the presence of some mild nonobstructive coronary artery disease. This study is performed in order to quantitate left ventricular function, and to determine myocardial viability and damage. TECHNIQUE: Luis Manuel ACHIEVA MRI scanner. Morphologic and dynamic cine imaging were performed in multiple projections before and after contrast administration. Thereafter, gadolinium was administered, which was followed by viability/scar imaging. Finally, flow quanti fication sequences were performed to determine the degree of valvular dysfunction. Please refer to the contrast sheet scanned in the EPIC system for the amount and route of contrast given. Scanning blood pressure was 155/80. Patient weighs 215 pounds, with height of 69 inches. Body surface area is appr oximately 2.18 sq m. FINDINGS: The chest wall and mediastinum appears unremarkable. No pericardial effusion is identified. The central pulmonary artery is normal in calibre. Limited imaging through thelungs reveals no gross abnormalities; MR is not optimised in the assessment of pulmonary parenchymal lung disease. The cardiac chambers demonstrate normal atrioventricular and ventriculoarterial concordance, and systemic and pulmonary venous return. The thoracic aorta is normal in course, calibre, andcontour. There is no evidence of acute aortic pathology, such as dissection, intramural hematoma, orcontained rupture. The left ventricle is normal in size, shape, and function. There are no segmentalwall motion abnormalities. Quantitative values are as follows: EDV = 200 cc; ESV = 59 cc ; stroke volume = 141 cc; and ejection fraction = 71%. Calculated absolute cardiac output = 6.6 liters/min. Absolute left ventricular mass = 113 grams. Indexed LVEDV = 92 cc/sq m that is well within normal referenc e range. No imaging evidence of hypertrophic cardiomyopathy or left ventricular noncompaction is identified. The right ventricle is normal in size and function. Quantitative values are as follows: EDV = 216 cc; ESV = 87 cc; stroke volume = 128 cc; and ejection fraction = 58%. Indexed RV EDV = 99 cc/sqm that is well within normal reference range. Cine imaging and flow quantification reveals trace tricuspid regurgitation. No aortic stenosis or mitral valve prolapse is identified. Aortic and mitral valve function is unremarkable. Viability/scar imaging reveals uniformly "nulled" myocardium, indicating no prior myocardial damage. All of the left ventricular myocardium appears full thickness and viable . In the [place] myocardial T1 mapping, septal myocardial T1 measurement is well within normal reference range, consistent with the above viability images, indicating the absence of diffuse fibrosis. Ventricular thrombus is not present. Flow curves suggest normal left and right atrial pressures. CONCLUSIONS: 1. The left ventricle is normal in size, shape, and function. Ejection fraction is quantified to be 71%. Quantitative left ventricular functional values are as described above. Viability/scar imaging is normal. There is no evidence of prior myocardial damage. No abnormal enhancement of the myocardium is seen after contrast administration. No imaging evidence of infiltrative cardiomyopathy, suchas sarcoidosis or amyloidosis. No diffuse fibrosis is identified, reflected by [place] myocardial T1 imaging. 2. The right ventricle is normal in size and function. Quantitative right ventricular functional values as described above. No abnormal enhancement of the right ventricular myocardium is noted.3. Other findings as described above. Signed: Hector Shelton MDReport Verified Date/Time: 02/27/2019 19:31:30 Reading Location: [place] [address] Cardiology MRI -[id number] 12:43:00 Test Item Value Reference Range Interpretation Comments POC-CREATININE 1.2 mg/dL 0.6-1.[address] [facility] 67[address] ([facility]) (test [place] code = 1859) [address] POC-EGFR ([facility]) 61 mL/min/1.73M2 (test code = 1860) CBC WITH PLATELET COUNT + MANUAL [id number] 15:20:00 Test Item Value Reference Range Interpretation Comments WHITE BLOOD CELL COUNT 7.4 K/ L 3.5-10.5 ([facility]) (test code = 775) RED BLOOD CELL COUNT 4.32 M/ L 4.63-6.08 L (BEAKER) (test code = 761) HEMOGLOBIN (BEAKER) 13.6 GM/DL 13.7-17.5 L (test code = 410) HEMATOCRIT (BEAKER) 40.3 % 40.1-51.0 (test code = 411) MEAN CORPUSCULAR 93.3 fL 79.0-92.2 H VOLUME (BEAKER) (test code = 753) MEAN CORPUSCULAR 31.5 pg 25.7-32.2 HEMOGLOBIN (BEAKER) (test code = 751) MEAN CORPUSCULAR 33.7 GM/DL 32.3-36.5 HEMOGLOBIN CONC (BEAKER) (test code = 752) RED CELL DISTRIBUTION 13.2 % 11.6-14.4 WIDTH (BEAKER) (test code = 412) PLATELET COUNT 177 K/CU MM 150-450 (BEAKER) (test code = 756) MEAN PLATELET VOLUME 10.1 fL 9.4-12.4 (BEAKER) (test code = 754) NUCLEATED RED BLOOD 0 /100 WBC 0-0 CELLS (BEAKER) (test code = 413) NEUTROPHILS RELATIVE 49 % This is an appended PERCENT (BEAKER) (test repor t. These code = 429) results have be en appended to a previously prudence l verified report . LYMPHOCYTES RELATIVE 41 % This is an appended PERCENT (BEAKER) (test repor t. These code = 430) results have be en appended to a previously prudence l verified report . MONOCYTES RELATIVE 8 % This is a n appended PERCENT (BEAKER) (test repor t. These code = 431) results have be en appended to a previously prudence l verified report . EOSINOPHILS RELATIVE 2 % This is an appended PERCENT (BEAKER) (test repor t. These code = 432) results have be en appended to a previously prudence l verified report . BASOPHILS RELATIVE 1 % This is a n appended PERCENT (BEAKER) (test repor t. These code = 437) results have be en appended to a previously prudence l verified report . NEUTROPHILS ABSOLUTE 3.60 K/ L 1.78-5.38 This is an appended COUNT (BEAKER) (test report. These code = 670) results have be en appended to a previously prudence l verified report . LYMPHOCYTES ABSOLUTE 2.98 K/ L 1.32-3.57 This is an appended COUNT (BEAKER) (test report. These code = 414) results have be en appended to a previously prudence l verified report . MONOCYTES ABSOLUTE 0.56 K/ L 0.30-0.82 This is a n appended COUNT (BEAKER) (test report. These code = 415) results have be en appended to a previously prudence l verified report . EOSINOPHILS ABSOLUTE 0.15 K/ L 0.04-0.54 This is an appended COUNT (BEAKER) (test report. These code = 416) results have be en appended to a previously prudence l verified report . BASOPHILS ABSOLUTE 0.04 K/ L 0.01-0.08 This is a n appended COUNT (BEAKER) (test report. These code = 417) results have be en appended to a previously prudence l verified report . IMMATURE 0 % 0-1 This is an appe nded GRANULOCYTES-RELATIVE report . These PERCENT (BEAKER) (test resul ts have been code = 2801) appended to a previously prudence l verified report . BASIC METABOLIC [id number] 06:23:00 Test Item Value Reference Range Interpretation Comments SODIUM (BEAKER) 136 meq/L 136-145 (test code = 381) POTASSIUM (BEAKER) 4.7 meq/L 3.5-5.1 (test code = 379) CHLORIDE (BEAKER) 105 meq/L 98-107 (test code = 382) CO2 (BEAKER) (test 26 meq/L 22-29 code = 355) BLOOD UREA NITROGEN 25 mg/dL 7-21 H (BEAKER) (test code = 354) CREATININE (BEAKER) 1.11 mg/dL 0.57-1.25 (test code = 358) GLUCOSE RANDOM 102 mg/dL 70-105 (BEAKER) (test code = 652) CALCIUM (BEAKER) 9.6 mg/dL 8.4-10.2 (test code = 697) EGFR (BEAKER) (test 67 mL/min/1.73 ESTIMA JANET GFR IS code = 1092) sq m NOT ACCURATE CREATININE CLEARANCE IN PREDICTING GLOMERULAR FILTRATION RATE . ESTIMATED GFR I S NOT APPLICABLE FOR DIALYSIS PATIEN TS. CT, HEART CORONARY CHRISTINA, WO [id number] 09:49:00Addendum BeginsREPORT STATUS:A Addendum: I agree with the previously described n on vascular findings. Signed: Charles August MDReport Verified Date/Time: 10/15/2018 09:49:49 Reading Location: [facility] P048 Angio Body Reading RoomAddendum EndsAddendum BeginsREPORT STATUS:A ADDENDUM: Reconstruction was made in the lower chest, with full [id number]. No nodule i s identified and no pleural effusion is seen in the lower half of the lung syed. The noncontrast images of the upper abdomen is unremarkable. Degenerative changes is identified in the bony structures. Signed: Hector Shelton MDReport Verified Date/Time: 10/15/2018 07:55:39 Reading Location: [place] [id number] Cardiology MRIAddendum EndsFINAL REPORT CT scan for Coronary Calcium scoring, 14 October 2018 INDICATION: This is a 63 -year old male with a diagnosis of I 47.1 presents for coronary calcium scoring. TECHNIQUE: Spiral acquisition without contrast administration using a WeHealthdetector CT scan. Calcium score is analysed using the EPSa SOFTWARE. This exam was performed according to [...] ECG synchronized computed tomography of the heart withattention to the coronary arteries was performed. Coronary calcification was analyzed using the Vitrea system software. These are the results of the calcium score evaluation (threshold = 130 HU): LM: = 44 LAD: = 238 LCX: = 80 RCA: = 428 [place]: = 790 Reference ranges for calcium scores are provided [...] arteries in the normal fashion. The right coronaryartery arises from the right sinus of Valsalva. [...] chest is not reconstructed in the full sifrm-ma-rotb.Scattered calcified nodules are seen indicating prior granulomatous disease. No suspicious pulmonarynodule is identified, with visualised. Limited images of [...] is seen in the aortic root. No ectasiaor aneurysmal dilation is identified. 5. Other findings as described above. 6. An addendum will be di ctated by the Siderographer Radiologist regarding the nonvascular findings. Signed: Hector Shelton MDReport Verified Date/Time: 10/14/2018 17:20:03 Reading Location: [place] [address] Cardiology MRI
--- NOTE | 2022-09-13 15:32 | RAD REPORT ---
EXAM DESCRIPTION: CT - CTHCSPWOC - 09/13/2022 3:10 pm CLINICAL HISTORY: fall on asa COMPARISON: No comparisons TECHNIQUE: Axial 5 mm thick images of the head were obtained. Axial 2 mm thick images of the cervic al spine were obtained with sagittal and coronal reconstruction images generated and reviewed. All CT scans are performed using dose optimization technique as appropriate and may include automated exposure control or mA/KV adjustment according to patient size. FINDINGS: No intracranial hemorrhage, mass, edema or acute intracranial finding. No suspicion for ac [place] infarction. No extra-axial fluid collections. No significant should be or chronic ischemic change . Ventricles are normal. Arterial tree calcifications are present. Mastoid air cells and paranasal si nuses are clear. No globe or orbit abnormality seen. Cervical bodies are normal in height. No fracture or acute finding identifiable. Significant C5-6 and C6-7 disc space narrowing seen with degenerative endplate spurring. No fracture or acute bony abnorm ality. Arterial tree calcifications are present. Central canal detail is inherently limited. No paraspinal mass or hematoma. IMPRESSION: Negative CT head examination for acute or significant finding. Cervical spine degenerative change with no acute finding.
--- NOTE | 2022-09-13 15:49 | RAD REPORT ---
EXAM DESCRIPTION: RAD - Shoulder Left 2 View - 09/13/2022 3:19 pm CLINICAL HISTORY: Smash injury COMPARISON: Chest Pa And Lat (2 Views) dated 05/07/2019; Chest Single View dated 11/02/2018 TECHNIQUE: Internal and external rotation views of the left shoulder were obtained. FINDINGS: There is no fracture or dislocation. AC joint degenerative changes are present. No inferio rly directed spurring. The head of the clavicle is positioned along the superior margin of the acromi on. There are marginal spurs present in the clavicle head. This positioning of the clavicle head is s imilar to prior imaging back to 2019. The acromial humeral joint space is normal with no abnormal sof t tissue calcifications. No acute or suspicious findings. 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 IMPRESSION: Negative two-view left shoulder examination for acute findings. AC joint configuration and degenerative pattern are stable back to at least 2019.
--- NOTE | 2022-09-13 16:00 | EDPHYS ---
Physician Documentation [facility] Name: Alberto Corea Age: 67 yrs Sex: Male : 1955 Arrival Date: 09/13/2022 Time: 13:54 Bed IW5 Private MD: ED Physician Haja Rai HPI: 09/13 14:50 This 67 yrs old Male presents to ER via Unassigned with complaints of Shoulder Pain, snw Fall Injury - 4ft. 14:50 The patient or guardian complains of decreased range of motion, an injury, tenderness. snw left shoulder. Context: The problem was sustained outdoors, resulted from a fall, from 4ft ladder onto grass, The patient experiences decreased range of motion, when attempts to raise arm, The patient reports no obvious deformity. Onset: The symptoms/episode began/occurred suddenly, at 12:00, and became persistent. Modifying factors: the symptoms are alleviated by remaining still, The symptoms are aggravated by movement. Associated signs and symptoms: Pertinent positives: initial brief paresthesias to left arm, resolved. Severity of symptoms: At their worst the symptoms were moderate. Treatment prior to arrival includes: no previous treatment. The patient has experienced a previous episode, to right shoulder, sees Dr. Tam. no LOC, denies head injury. Historical: - Allergies: 15:01 No Known Allergies; ss - Home Meds: 15:01 aspirin 81 mg Oral chew 1 tab once daily [Active]; Cialis 5 mg Oral tab 1 tab as needed ss [Active]; amlodipine 10 mg tab 1 tab once daily [Active]; Crestor 10 mg oral tab 1 tab once daily [Active]; famotidine 20 mg Oral tab 1 tab once daily [Active]; - PMHx: 15:01 High Cholesterol; Hyperlipidemia; Hypertension; ss - Immunization history:: Client reports receiving the 2nd dose of the Covid vaccine. - Social history:: Smoking status: Patient denies any tobacco usage or history of. ROS: 14:49 Constitutional: Negative for fever, chills, and weight loss, Eyes: Negative for injury, snw pain, redness, and discharge, ENT: Negative for injury, pain, and discharge, Neck: Negative for injury, pain, and swelling, Cardiovascular: Negative for chest pain, palpitations, and edema, Respiratory: Negative for shortness of breath, cough, wheezing, and pleuritic chest pain, Abdomen/GI: Negative for abdominal pain, nausea, vomiting, diarrhea, and constipation, Back: Negative for injury and pain, : Negative for injury, bleeding, discharge, and swelling, Skin: Negative for injury, rash, and discoloration, Neuro: Negative for headache, weakness, numbness, tingling, and seizure, Psych: Negative for depression, anxiety, suicide ideation, homicidal ideation, and hallucinations. 14:49 MS/extremity: Positive for injury or acute deformity, decreased range of motion, pain, paresthesias, of the left shoulder. Exam: 14:48 Constitutional: This is a well developed, well nourished patient who is awake, alert, snw and in no acute distress. Head/Face: Normocephalic, atraumatic. Eyes: Pupils equal round and reactive to light, extra-ocular motions intact. Lids and lashes normal. Conjunctiva and sclera are non-icteric and not injected. Cornea within normal limits. Periorbital areas with no swelling, redness, or edema. ENT: Nares patent. No nasal discharge, no septal abnormalities noted. Tympanic membranes are normal and external auditory canals are clear. Oropharynx with no redness, swelling, or masses, exudates, or evidence of obstruction, uvula midline. Mucous membranes moist. Neck: Trachea midline, no thyromegaly or masses palpated, and no cervical lymphadenopathy. Supple, full range of motion without nuchal rigidity, or vertebral point tenderness. No Meningismus. Chest/axilla: Normal chest wall appearance and motion. Nontender with no deformity. No lesions are appreciated. Cardiovascular: Regular rate and rhythm with a normal S1 and S2. No gallops, murmurs, or rubs. Normal PMI, no JVD. No pulse deficits. Respiratory: Lungs have equal breath sounds bilaterally, clear to auscultation and percussion. No rales, rhonchi or wheezes noted. No increased work of breathing, no retractions or nasal flaring. Abdomen/GI: Soft, non-tender, with normal bowel sounds. No distension or tympany. No guarding or rebound. No evidence of tenderness throughout. Back: No spinal tenderness. No costovertebral tenderness. Full range of motion. Skin: Warm, dry with normal turgor. Normal color with no rashes, no lesions, and no evidence of cellulitis. Neuro: Awake and alert, GCS 15, oriented to person, place, time, and situation. Cranial nerves II-XII grossly intact. Motor strength 5/5 in all extremities. Sensory grossly intact. Cerebellar exam normal. Normal gait. Psych: Awake, alert, with orientation to person, place and time. Behavior, mood, and affect are within normal limits. 14:48 Musculoskeletal/extremity: Extremities: grossly normal except: noted in the left arm: decreased ROM, tenderness. Vital Signs: 15:00 BP 155 / 88; Pulse 60; Resp 16; Temp 98.6(O); Pulse Ox 98% on R/A; Weight 95.25 kg; ss Height 5 ft. 9 in. (175.26 cm); Pain 4/10; 15:00 Body Mass Index 31.01 (95.25 kg, 175.26 cm) ss MDM: 14:47 Patient medically screened. snw 16:00 Data reviewed: vital signs, nurses notes. Data interpreted: Pulse oximetry: on room air snw is 98 %. Interpretation: normal. Counseling: I had a detailed discussion with the patient and/or guardian regarding: the historical points, exam findings, and any diagnostic results supporting the discharge/admit diagnosis, radiology results, the need for outpatient follow up, to return to the emergency department if symptoms worsen or persist or if there are any questions or concerns that arise at home. Special discussion: Based on the history and exam findings, there is no indication for further emergent testing or inpatient evaluation. I discussed with the patient/guardian the need to see the orthopedic surgeon for further evaluation of the symptoms. I discussed with the patient/guardian the need to see the primary care provider for further evaluation of the symptoms. 09/13 14:48 Order name: CT Head C Spine; Complete Time: 15:33 snw 09/13 14:48 Order name: Shoulder Left (2 View) XRAY; Complete Time: 15:57 snw 09/13 15:58 Order name: Sling; Complete Time: 16:32 snw Administered Medications: 16:35 Drug: traMADol 50 mg Route: PO; ss 16:35 Follow up: Response: Medication administered at discharge. Disposition: 18:03 Co-signature as Attending Physician, Haja Rai MD I agree with the assessment and rt plan of care. Disposition Summary: 09/13/22 15:59 Discharge Ordered Location: Home snw Condition: Stable snw Diagnosis - Contusion of shoulder snw - Strain of muscle(s) and tendon(s) of the rotator cuff of left shoulder snw - Fall (on) (from) unspecified stairs and steps snw Followup: snw - With: Emergency Department - When: As needed - Reason: Worsening of condition Followup: snw - With: Private Physician - When: 2 - 3 days - Reason: Recheck today's complaints, Continuance of care, Re-evaluation by your physician Discharge Instructions: - Discharge Summary Sheet snw - RICE Therapy for Routine Care of Injuries snw - Shoulder Pain snw - Shoulder Sprain snw - Heat Therapy snw Forms: - Medication Reconciliation Form snw - Thank You Letter snw - Antibiotic Education snw - Prescription Opioid Use snw Prescriptions: - Mobic 7.5 mg Oral Tablet - take 1 tablet by ORAL route once daily take with food; 20 tablet; Refills: 0, snw Product Selection Permitted Signatures: Dispatcher [employer] EDSophia Leonard, RADIATION PROTECTION ENGINEER-C RADIATION PROTECTION ENGINEER-Csnw Keyona Monson, GIANCARLO RN ss Haja Rai MD MD rt
--- NOTE | 2022-09-13 16:00 | ER ---
Nurse's Notes [facility] Name: Alberto Corea Age: 67 yrs Sex: Male : 1955 Arrival Date: 09/13/2022 Time: 13:54 Bed IW5 Private MD: Diagnosis: Contusion of shoulder;Strain of muscle(s) and tendon(s) of the rotator cuff of left shoulder;Fall (on) (from) unspecified stairs and steps Presentation: 09/13 15:00 Chief complaint: Patient states: L shoulder pain after falling 4 foot off of ladder. ss Denies breathing difficulties. Coronavirus screen: Client denies travel out of the [place] in the last 14 days. Ebola Screen: Patient denies exposure to infectious person. Patient denies travel to an Ebola-affected area in the 21 days before illness onset. Initial Sepsis Screen: Does the patient meet any 2 criteria? No. Patient's initial sepsis screen is negative. Does the patient have a suspected source of infection? No. Patient's initial sepsis screen is negative. Risk Assessment: Do you want to hurt yourself or someone else? Patient reports no desire to harm self or others. Onset of symptoms was September 13, 2022. 15:00 Method Of Arrival: Ambulatory ss 15:00 Acuity: MARIELY 4 ss Historical: - Allergies: 15:01 No Known Allergies; ss - Home Meds: 15:01 aspirin 81 mg Oral chew 1 tab once daily [Active]; Cialis 5 mg Oral tab 1 tab as needed ss [Active]; amlodipine 10 mg tab 1 tab once daily [Active]; Crestor 10 mg oral tab 1 tab once daily [Active]; famotidine 20 mg Oral tab 1 tab once daily [Active]; - PMHx: 15:01 High Cholesterol; Hyperlipidemia; Hypertension; ss - Immunization history:: Client reports receiving the 2nd dose of the Covid vaccine. - Social history:: Smoking status: Patient denies any tobacco usage or history of. Screenin:00 [facility] ED Fall Risk Assessment (Adult) History of falling in the last 3 months, ss including since admission Yes- single mechanical fall (1 pt) Confusion or Disorientation No (0 pts) Intoxicated or Sedated No (0 pts) Impaired Gait No (0 pts) Mobility Assist Device Used No (0 pt) Altered Elimination No (0 pt) Score/Fall Risk Level 0 - 2 = Low Risk. Abuse screen: Denies threats or abuse. Denies injuries from another. Nutritional screening: No deficits noted. Tuberculosis screening: Never had TB. Assessment: 15:00 General: Appears in no apparent distress. comfortable, Behavior is calm, cooperative. ss Pain: Complains of pain in left shoulder Pain currently is 4 out of 10 on a pain scale. Quality of pain is described as aching, tender. Neuro: Level of Consciousness is awake, alert, obeys commands. Respiratory: Airway is patent Respiratory effort is even, unlabored, Respiratory pattern is regular, symmetrical. Derm: Skin is pink, warm \T\ dry. normal. Vital Signs: 15:00 BP 155 / 88; Pulse 60; Resp 16; Temp 98.6(O); Pulse Ox 98% on R/A; Weight 95.25 kg; ss Height 5 ft. 9 in. (175.26 cm); Pain 4/10; 15:00 Body Mass Index 31.01 (95.25 kg, 175.26 cm) ED Course: 13:54 Patient arrived in ED. as 14:02 Sophia Luke FNP-C [facility]. snw 14:02 Haja Rai MD is Attending Physician. snw 15:00 Patient has correct armband on for positive identification. Bed in low position. Call ss light in reach. 15:01 Triage completed. ss 15:01 Arm band placed on right wrist. ss 15:12 CT Head C Spine In Process Unspecified. EDMS 15:21 Shoulder Left (2 View) XRAY In Process Unspecified. EDMS 16:35 No provider procedures requiring assistance completed. Patient did not have IV access ss during this emergency room visit. Administered Medications: 16:35 Drug: traMADol 50 mg Route: PO; ss 16:35 Follow up: Response: Medication administered at discharge. ss Medication: 15:00 VIS not applicable for this client. ss Outcome: 15:59 Discharge ordered by . snw 16:35 Discharged to home ambulatory, with significant other. ss 16:35 Condition: good 16:35 Discharge instructions given to patient, family, Instructed on discharge instructions, follow up and referral plans. medication usage, Demonstrated understanding of instructions, follow-up care, medications. 16:36 Patient left the ED. ss Signatures: Dispatcher [employer] EDMS Sophia Luke, AGENT TELEGRAPHER-C AGENT TELEGRAPHER-Csnw Sandy Thompson Shelby, RN RN ss
[2022-09-13] MEDS ORDERED: TRAMADOL HCL 50 MG TAB ONE (16:36)
[2022-09-13 16:40] VITALS: BP 155/88; TEMP 98.6; O2SAT 98
== END 2022-09-13 16:36 | disposition home or self-care (01) ==
LOC: ER 13:51
DX: S46.012A Strain of muscle(s) and tendon(s) of the rotator cuff of left shoulder, initial encounter (principal); W11.XXXA Fall on and from ladder, initial encounter; I10 Essential (primary) hypertension; Z79.82 Long term (current) use of aspirin
CPT/HCPCS: 70450; 72125